=== PATIENT | female | born 1970 | race African-American/Black ===

== ENCOUNTER → 2017-08-05 | Outpatient (CLI) | payer OTHER ==
--- NOTE | 2017-08-05 16:13 | KCIC ---
MR of the right thigh HISTORY: Pain in the distal hamstring region. [place] a pop 3 weeks ago. TECHNIQUE: Routine multiplanar sequences are obtained. FINDINGS: The hamstring muscles are intact. No evidence of abnormal edema, fluid or hematoma. The proximal hamstring attachment to the hamstring is intact. The distal hamstring tendon attachments are not included in the area of coverage. No bone lesion, marrow edema or acute fracture. No evidence of periosteal reaction. IMPRESSION: No evidence of acute abnormality. Hamstring muscles are intact. Electronically signed by: Siddharth Sequeira MD (08/05/2017 4:10 PM) [id number]
== END | disposition home or self-care (01) ==
LOC: KCIC MRI 12:58
PROVIDERS: ATTEND Family Medicine
DX: S76.311A Strain of muscle, fascia and tendon of the posterior muscle group at thigh level, right thigh, initial encounter (principal); X58.XXXA Exposure to other specified factors, initial encounter; Y93.89 Activity, other specified; Y92.89 Other specified places as the place of occurrence of the external cause; Y99.8 Other external cause status
CPT/HCPCS: 73718

== ENCOUNTER → 2021-12-04 | Outpatient (CLI) | payer OTHER ==
--- NOTE | 2021-12-04 14:43 | RAD ---
EXAM: US BREAST BIOPSY 1ST LESION, MG DIAGNOSTICUNILAT MAMMO 12/04/2021 8:20 AM INDICATION: 51-year-old woman with right breast mass on outside mammogram and ultrasound COMPARISON: Outside mammogram and ultrasound 09/14/2021 TECHNIQUE/FINDINGS: The purpose of the procedure, risks and benefits were explained to the patient. Informed consent was obtained. A timeout was performed. The patient was placed supine on the ultrasound table. The mass hypoechoic at 10:00 4 cm from the nip ple in the right breast was identified and overlying skin marked, prepped, draped in standard sterile fashion. Skin was anesthetized with 1 percent lidocaine. Next, 4 core biopsy samples were obtained w ith a coaxial 14-gauge biopsy device. Samples were placed in formalin and sent to the laboratory for analysis. A ribbon biopsy marker was then placed at the biopsy site under ultrasound. [place] were re moved, pressure held for hemostasis, and skin cleansed and covered with a dressing. The patient anahi ated the procedure well and left in stable condition. Post clip mammogram demonstrates appropriate position of clip the mass at 10:00 4 cm from the nipple. IMPRESSION:Technically successful ultrasound-guided biopsy of right breast mass and clip placement. Electronically signed by: Abida Stapleton MD (12/04/2021 2:40 PM) [id number]
== END | disposition home or self-care (01) ==
LOC: US 08:22
PROVIDERS: ATTEND Surgery
DX: N63.11 Unspecified lump in the right breast, upper outer quadrant (principal); R92.8 Other abnormal and inconclusive findings on diagnostic imaging of breast
CPT/HCPCS: 19083; 77065; A4648; C1819

== ENCOUNTER 2021-12-26 06:50 | Day surgery (SDC) | payer OTHER ==
[~2021-12-26] VITALS: Ht 165.1 cm; Wt 85.0 kg
[~2021-12-26 06:50] MED LIST: HYDROmorphone 2 MG/ML INJ. IVP PRN; IV RINGERS,LACTATED 1000ML 1,000 ML IV SCH; MORPHINE SULFATE 2 MG/ML INJ. IVP PRN; PROCHLORPERAZINE 10 MG/2 ML VIAL. IVP PRN; fentaNYL PF VIAL 100 MCG/2 ML VIAL IVP PRN
[2021-12-26 07:28] VITALS: BP 137/77
[2021-12-26] MEDS ORDERED: fentaNYL PF VIAL 100 MCG/2 ML VIAL ONE (08:25)
[2021-12-26] MEDS ORDERED: ONDANSETRON PF 4 MG/2 ML VIAL. ONE (08:25)
[2021-12-26] MEDS ORDERED: LIDOCAINE 2% PF 5 ML VIAL. ONE (08:25)
[2021-12-26] MEDS ORDERED: PROPOFOL 10 MG/ML (20ML) VIAL. IV ONE (08:25)
[2021-12-26] MEDS ORDERED: DEXAMETHASONE SOD PHOS 4 MG/ML VIAL ONE ×2 (08:28→08:29)
[2021-12-26] MEDS ORDERED: MIDAZOLAM HCL/PF 2 MG/2 ML VIAL. ONE (08:34)
[2021-12-26] MEDS ORDERED: BUPIVACAINE-EPI 0.5% 30 ML VIAL KIT. ONE (09:04)
[2021-12-26] MEDS ORDERED: ePHEDrine PF IN SALINE 50 MG/10 ML SYRINGE. IV ONE (10:38)
--- NOTE | 2021-12-26 10:45 | PDOC4 ---
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 This showed a spindle cell tumor. The recommendation is to proceed with excision and margins of this tumor. The risks of surgery were discussed which include bleeding, infection, recurrence, pain, scar tissue, potential need for additional surgery procedure. She understands and would like to proceed. Description: The patient was taken the operating room and placed supine on the operating table. General anesthesia was performed. The right breast was prepped with ChloraPrep and draped in a standard surgical manner. Wire localization had been performed in radiology and the wire was seen exiting the lateral aspect of the breast. An incision was made in the superior lateral aspect in the skin lines. Cautery dissection was carried down to the breast parenchyma. The wire was identified without difficulty. With cautery dissection a generous portion of breast tissue was mobilized around the trajectory of the wire. Full circumferential dissection was performed and the mass was fully excised with the wire included. Specimen radiograph confirmed the clip wire and mass present within the lumpectomy. Hemostasis was achieved with cautery. No other abnormalities were noted. The subcutaneous tissue was approximated with 3-0 Vicryl. Skin was closed with 4-0 Monocryl. A sterile OpSite dressing was applied. The patient tolerated the procedure well and was sent to the recovery room in stable condition. At the end the case all counts were correct. JERMAINE WAGNER MD Dec 26, 2021 10:45
[2021-12-26] MEDS ORDERED: OXYC-325 PO (10:47)
--- NOTE | 2021-12-26 10:49 | DISCH ---
DISCHARGE INSTRUCTIONS Condition on Discharge Condition on Discharge: Stable Activity After Discharge Activity Instructions for Disc: Resume previous activity Driving Instructions after Dis: Other, see below (no driving if taking pain meds) Diet after Discharge Diet after Discharge: Regular Wound Incision Care Wound/Incision Care: Other, see below (keep dressing clean and dry) Follow-Up Follow up with: Dr Wagner in 1 week in office, call for appointment [phone] JERMAINE WAGNER MD Dec 26, 2021 10:49
[2021-12-26] MEDS ORDERED: oxyCODONE/APAP 5/325 1 TAB TABLET PO ONE (11:30)
[2021-12-26 11:45] VITALS: BP 113/70
--- NOTE | 2021-12-26 12:10 | RAD ---
EXAM: MG DIAGNOSTICUNILAT MAMMO, US GDE NDL BX/ASPIR/INJ/LOC 12/26/2021 9:15 AM INDICATION: Needle localization for lumpectomy COMPARISON: Right breast biopsy and diagnostic mammogram 12/04/2021 TECHNIQUE/FINDINGS: The purpose of the procedure, risks and benefits were explained to the patient. Informed consent was obtained. A timeout was performed. The patient was placed supine on the ultrasound table. The mass at 2:00 4 cm from the nipple in the r ight breast was identified and overlying skin marked, prepped, draped in standard sterile fashion. Sk in was anesthetized with 1 percent lidocaine. Next, a 7.5 cm localization wire was placed into the ma ss using continuous ultrasound guidance. The tip of the wire was advanced through the mass to the far edge of the mass but could not be advanced beyond the mass due to the firmness of the mass. The over lying needle was removed. The skin was cleaned and wire was secured to the skin with a bandage. Post clip mammogram demonstrates appropriate position of the localization wire and the mass at 2:00 4 cm t he nipple, immediately adjacent to the biopsy clip. The tip of the wire is at the edge of the mass IMPRESSION:Technically successful ultrasound-guided needle localization of right breast mass and post wire placement mammogram. Electronically signed by: Abida Stapleton MD (12/26/2021 12:07 PM) [id number]
--- NOTE | 2021-12-26 12:11 | RAD ---
EXAM: MG DIGITAL BILAT DIAGNOSTIC MAMMO WITH MICHELLE 12/26/2021 10:25 AM CLINICAL INDICATION: Right breast surgical specimen COMPARISON: Right breast mammogram 12/26/2021 and 12/04/2021 TECHNIQUE: A mammogram was obtained of the surgical specimen FINDINGS: The right breast surgical specimen contains the wire, biopsy clip, and mass. Dr. Sinclari w as informed of the findings at the time of the exam. IMPRESSION: Postbiopsy specimen as described. Electronically signed by: Abida Stapleton MD (12/26/2021 12:09 PM) [id number]
--- NOTE | 2021-12-27 17:09 | PATHOLOGY ---
[facility] Accession Number: [id number] . 01 Material submitted: . breast - RIGHT BREAST MASS SHORT STITCH SUPERFICIAL, LONG STITCH LATERAL. Modifiers: right . 01 Clinical history: . EXCISION RIGHT BREAST MASS OBTAINED: 1022 FORMALIN: 1033 . 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 - Tumor is approximately 1 mm from the closest (anterior) margin of resection. - Previous biopsy site changes. - Proliferative fibrocystic changes with the following components: - [place]id ductal epithelial hyperplasia. - Stromal fibrosis. - Duct ectasia. - Cystic change. - Apocrine metaplasia. - Small hyalinized intraductal papilloma. - Fibroadenomatous change, focal. (JPM:mario; 12/27/2021) R 12/27/2021 1638 Local . 02 Comment: There is no evidence of malignancy. (JPM:mario; 12/27/2021) . 02 Electronically signed: . Alexander Camara MD, Pathologist NPI- [id number] . 01 Gross description: . Fixative: Formalin Labeled: Right breast mass short stitch superficial long stitch lateral Specimen received: Intact but markedly compressed and as a result the surgical margins may be distorted. A needle localization wire is in place and the tip of the wire is visible on the superficial margin. The tip is located in slice 7. Oriented: short stitch superficial long stitch lateral Weight: 25 g Dimensions: 6.0 cm medial to lateral, 4.2 cm superior to inferior and 1.6 cm superficial to deep . The specimen is inked as follows: superior-red inferior-blue superficial-green deep-black lateral-orange medial-yellow . Sectioned from: Medial to lateral Number of slices: 19 Lesion: 0.9 cm medial to lateral 0.9 cm superior to inferior and 0.7 cm superficial to deep Lesion located in slices 7-9 . Lesion distance to margins: 1.5 cm to superior, slice 9 1.3 cm to inferior, slice 8 Involves the superficial margin, slices 8-9 0.8 cm to deep, slice 8 3.3 cm to lateral 1.6 cm to medial . Biopsy clip: not identified, however multiple white plastic-like, rounded, irregular presumed biopsy cavity fillers are identified Uninvolved breast parenchyma: Fatty and homogenous with an area of hemorrhage (1.2 x 0.9 x 0.4 cm) located in slices 13-17 and less than 5% fibrous tissue . The specimen is submitted as follows: A1: Slice 1, represented A2: Slice 5, represented A3-A4: Slice 7, entirely submitted A5-A6: Slice 8, entirely submitted A7-A8: Slice 9, entirely submitted A9: Slice 10 and slice 11, represented to show areas with cavities that contained the rounded, irregular presumed biopsy cavity filler A 10: Slice 12, represented A11: Slice 15, represented to include area of hemorrhage A12: Slice 19, represented . Cold ischemic time: 10 minutes Total time in formalin: 10 hours (SENECA; 12/26/2021) DKA/DKA 12/26/2021 1756 Local . 02 Pathologist provided ICD-10: D49.3, N60.11, N62, N60.31, N60.41, N60.81, D24.1 . 02 CPT . 311037 Specimen Comment: A courtesy copy of this report has been sent to [phone], [phone] Specimen Comment: [id number] Specimen Comment: Report sent to / DR GIBSON Specimen Comment: A duplicate report has been generated due to demographic updates. Performed at: 01 [facility] [address] [facility] [address], [place] [id number] MD Alvaro Saez MD Phone: [phone] Performed at: 02 [facility] [address] [place], [place] [id number] MD Alexander Camara MD Phone: [phone]
== END 2021-12-26 12:00 | disposition home or self-care (01) ==
LOC: SURG 06:50
PROVIDERS: ATTEND Surgery
DX: D49.3 Neoplasm of unspecified behavior of breast (principal); R92.8 Other abnormal and inconclusive findings on diagnostic imaging of breast; N60.11 Diffuse cystic mastopathy of right breast; N60.41 Mammary duct ectasia of right breast; N60.81 Other benign mammary dysplasias of right breast; D24.1 Benign neoplasm of right breast; E66.9 Obesity, unspecified; Z79.899 Other long term (current) drug therapy; Z98.890 Other specified postprocedural states
CPT/HCPCS: 19301; 76098; 76942; 77065; 81025; A4930; A6254; A6258; C1819; J0690; J1100; J2250; J2405; J2704; J3010; 88307